=== PATIENT | female | born 1995 | race Two or more races ===

== ENCOUNTER 2016-03-01 00:12 | Observation (INO) | payer OTHER ==
[2016-03-01] VITALS (10 sets, daily range): BP systolic 90–108; BP diastolic 45–68
[~2016-03-01] VITALS: Ht 149.9 cm; Wt 49.4 kg
[2016-03-01] MEDS ORDERED: FENTANYL PF 100 MCG/2 ML VIAL. IV ONE ×2 (01:00→01:30)
[2016-03-01] MEDS ORDERED: KETOROLAC TROMETHAMINE 30 MG/ML SYRINGE. IV ONE (01:00)
[2016-03-01 01:06] LABS: BILIRUBIN,URINE NEGATIVE (NEG); GLUCOSE,URINE NEGATIVE (NEG); NITRITE,URINE NEGATIVE (NEG); PH,URINE 7.5; PROTEIN,URINE 30 mg/dL (NEG-TRACE); UROBILINOGEN,URINE 0.2 mg/dL (0.2 mg/dL)
[2016-03-01 01:11] LABS: RBC,URINE TNTC /HPF (0-2)
[2016-03-01 01:13] LABS: BACTERIA,URINE 0 /HPF (0-FEW)
[2016-03-01] MEDS ORDERED: ONDANSETRON PF 4 MG/2 ML VIAL. IV ONE (01:15)
[2016-03-01 01:31] LABS: BASO # 0.1 x10^3/uL (0.0-0.2); BASO % 1 % (0-3); EOS % 1 % (0-3); HEMATOCRIT 40.5 % (36.0-47.0); HEMOGLOBIN 13.3 g/dL (12.0-15.5); LYMPH # 3.9 x10^3/uL (1.0-4.8); LYMPH % 19 % (24-48); MEAN CORPUSCULAR HEMOGLOBIN 28 pg (25-35); MEAN CORPUSCULAR HGB CONC 33 g/dL (31-37); MEAN CORPUSCULAR VOLUME 87 fL (79-100); MONO % 7 % (0-9); NEUT % 73 % (31-73); PLATELET COUNT 344 x10^3/uL (140-400); RED BLOOD COUNT 4.66 x10^6/uL (3.50-5.40)
[2016-03-01 01:50] LABS: % EOS 2 % (0-5); PLT ESTIMATE ADEQUATE (ADEQUATE)
[2016-03-01] MEDS ORDERED: ACETAMINOPHEN 325 MG TABLET. PO PRN (03:30)
[2016-03-01] MEDS ORDERED: ONDANSETRON PF 4 MG/2 ML VIAL. IV PRN ×2 (03:30→08:15)
[2016-03-01] MEDS: FENTANYL PF 100 MCG/2 ML VIAL. IV PRN ×4 (03:48→10:46)
--- NOTE | 2016-03-01 04:07 | PHYS DOC ---
Past Medical History Past Medical History: No Pertinent History Past Surgical History: No Surgical History Alcohol Use: None Drug Use: None, Marijuana Adult General Chief Complaint Chief Complaint: VAGINAL BLEEDING HPI HPI Patient is a 21 year old female G1 approximately 8 weeks single IUP who presents with vaginal bleeding and lower abdominal pain since evaluation by her studio coordinator. She was diagnosed with an inevitable after ultrasound was obtained showing single IUP with no heart tones. She states her studio coordinator recommended a D&E, but she did not go to her OR appointment. At that time, she was having vaginal spotting. She has had gradual increase in her vaginal bleeding including passage of blood clots. She has midline lower abdominal pain that is crampy and severe. She denies fever or chills, nausea or vomiting, diarrhea, dysuria, prior vaginal discharge. Review of Systems Review of Systems Constitutional: Denies fever or chills [] Eyes: Denies change in visual acuity, redness, or eye pain [] HENT: Denies nasal congestion or sore throat [] Respiratory: Denies cough or shortness of breath [] Cardiovascular: No additional information not addressed in HPI [] GI: Denies nausea, vomiting, bloody stools or diarrhea [] : Denies dysuria or hematuria [] Musculoskeletal: Denies back pain or joint pain [] Integument: Denies rash or skin lesions [] Neurologic: Denies headache, focal weakness or sensory changes [] Endocrine: Denies polyuria or polydipsia [] Current Medications Current Medications Current Medications Medications (Trade) Dose Ordered Sig/[facility] Start Time Stop Time Status Last Admin Dose Admin Fentanyl Citrate (Fentanyl 2ml Vial) 75 mcg 1X ONCE 03/01/16 01:30 03/01/16 02:43 DC 03/01/16 01:33 75 MCG Ketorolac Tromethamine (Toradol) 10 mg 1X ONCE 03/01/16 01:00 03/01/16 02:43 DC 03/01/16 01:17 10 MG Ondansetron HCl (Zofran) 4 mg 1X ONCE 03/01/16 01:15 03/01/16 02:43 DC 03/01/16 01:12 4 MG Allergies Allergies Allergies Coded Allergies Type Severity Reaction Last Updated Verified No Known Drug Allergies 03/01/16 No Physical Exam Physical Exam Constitutional: Well developed, well nourished, no acute distress, non-toxic appearance. [] HENT: Normocephalic, atraumatic, bilateral external ears normal, oropharynx moist, nose normal. [] Eyes: PERRLA, EOMI. [] Neck: Normal range of motion, supple. [] Cardiovascular:Heart rate regular rhythm [] Lungs & Thorax: Bilateral breath sounds clear to auscultation [] Abdomen: Bowel sounds normal, soft, moderate suprapubic tenderness, no guarding or rebound. [] Genitourinary: Genitalia without lesions, No vaginitis or cervicitis, moderate blood pooling and blood clots present in vault, no active bleeding, Os at visual fingertip Skin: Warm, dry, no erythema, no rash. [] Back: No tenderness, no CVA tenderness. [] Extremities: ROM intact, no edema. [] Neurologic: Alert and oriented X 3, normal motor function, normal sensory function, no focal deficits noted. [] Psychologic: Affect normal, judgement normal, mood normal. [] Current Patient Data Vital Signs Vital Signs Date Time Temp Pulse Resp B/P Pulse Ox O2 Delivery O2 Flow Rate FiO2 03/01/16 01:33 16 98 Room Air Lab Values Laboratory Tests Test 03/01/16 00:58 03/01/16 01:09 Urine Collection Type Unknown Urine Color Red Urine Clarity Turbid Urine pH 7.5 Urine Specific [place] 1.015 Urine Protein 30mg/dL (NEG-TRACE) Urine Glucose (UA) Negativemg/dL (NEG) Urine Ketones (Stick) Tracemg/dL (NEG) Urine Blood Large (NEG) Urine Nitrite Negative (NEG) Urine Bilirubin Negative (NEG) Urine Urobilinogen Dipstick 0.2mg/dL (0.2 mg/dL) Urine Leukocyte Esterase Moderate (NEG) Urine RBC Tntc/HPF (0-2) Urine WBC 5-10/HPF (0-4) Urine Squamous Epithelial Cells None/LPF Urine Amorphous Sediment Present/HPF Urine Bacteria 0/HPF (0-FEW) White Blood Count 21.0x10^3/uL (4.0-11.0) H Red Blood Count 4.66x10^6/uL (3.50-5.40) Hemoglobin 13.3g/dL (12.0-15.5) Hematocrit 40.5% (36.0-47.0) Mean Corpuscular Volume 87fL (79-100) Mean Corpuscular Hemoglobin 28pg (25-35) Mean Corpuscular Hemoglobin Concent 33g/dL (31-37) Red Cell Distribution Width 13.0% (11.5-14.5) Platelet Count 344x10^3/uL (140-400) Neutrophils (%) (Auto) 73% (31-73) Lymphocytes (%) (Auto) 19% (24-48) L Monocytes (%) (Auto) 7% (0-9) Eosinophils (%) (Auto) 1% (0-3) Basophils (%) (Auto) 1% (0-3) Neutrophils # (Auto) 15.3x10^3uL (1.8-7.7) H Lymphocytes # (Auto) 3.9x10^3/uL (1.0-4.8) Monocytes # (Auto) 1.4x10^3/uL (0.0-1.1) H Eosinophils # (Auto) 0.2x10^3/uL (0.0-0.7) Basophils # (Auto) 0.1x10^3/uL (0.0-0.2) Segmented Neutrophils % 67% (35-66) H Band Neutrophils % 1% (0-9) Lymphocytes % 24% (24-48) Monocytes % 6% (0-10) Eosinophils % 2% (0-5) Platelet Estimate Adequate (ADEQUATE) Maternal Serum HCG Beta Subunit 3695mIU/mL (0-6) H Laboratory Tests 03/01/16 01:09 Course & Med Decision Making Course & Med Decision Making Pertinent Labs and Imaging studies reviewed. (See chart for details) I performed bedside ultrasound showing continued presence of products of conception. She has leukocytosis, but laboratory evaluation is otherwise unremarkable. Discussed with Dr. Modi, her studio coordinator, who recommends admission for D&E. Patient agrees with plan. Dragon Disclaimer Dragon Disclaimer This electronic medical record was generated, in whole or in part, using a voice recognition dictation system. Departure Departure Impression: Primary Impression: Missed Disposition: ADMITTED INPATIENT Condition: STABLE Referrals: NO PCP (PCP) Jennifer CHA MD Mar 01, 2016 04:07
[2016-03-01] MEDS ORDERED: IV RINGERS,LACTATED 1000ML 1,000 ML IV SCH (08:10)
[2016-03-01] MEDS ORDERED: PROCHLORPERAZINE 10 MG/2 ML VIAL. IV PRN (08:15)
[2016-03-01] MEDS ORDERED: MORPHINE SULFATE 2 MG/ML DISP.SYRIN. IV PRN (08:15)
[2016-03-01] MEDS ORDERED: FENTANYL PF 100 MCG/2 ML VIAL. IV PRN (08:15)
[2016-03-01] MEDS ORDERED: LIDOCAINE 1% 1 ML SYRINGE. ID PRN (08:15)
[2016-03-01] MEDS ORDERED: HYDROMORPHONE 2 MG/ML VIAL. IV PRN (08:15)
[2016-03-01] MEDS ORDERED: MIDAZOLAM HCL 2 MG/2 ML VIAL. ONE (08:16)
[2016-03-01] MEDS ORDERED: SEVOFLURANE 31 TO 60 MINUTES. IH ONE (08:16)
[2016-03-01] MEDS ORDERED: FENTANYL PF 100 MCG/2 ML VIAL. ONE (08:16)
[2016-03-01] MEDS ORDERED: KETOROLAC 30 MG/ML SYRINGE FOR OR. INJ ONE (08:17)
[2016-03-01] MEDS ORDERED: PROPOFOL 20 ML IV ONE (08:17)
[2016-03-01] MEDS ORDERED: DEXAMETHASONE SOD PHOS 20 MG/5 ML VIAL. ONE (08:17)
[2016-03-01] MEDS ORDERED: ONDANSETRON PF 4 MG/2 ML VIAL. ONE (08:17)
[2016-03-01] MEDS ORDERED: LIDOCAINE 2% 100 MG/5 ML DISP.SYRIN. ONE (08:17)
[2016-03-01] MEDS ORDERED: OXYTOCIN 10 UNIT/ML VIAL. ONE (09:19)
--- NOTE | 2016-03-01 09:23 | PDOC ---
BRIEF OPERATIVE NOTE Pre-Op Diagnosis incomplete Ab Post-Op Diagnosis Same Procedure Performed Suction D and C Surgeon Ly Cq Developer None Anesthesia Type: General Blood Loss 100cc Specimens Obtained POC Complications None RAFAELA REARDON MD Mar 01, 2016 09:23
[2016-03-01] MEDS ORDERED: NAPR500T PO (09:28)
[2016-03-01] MEDS ORDERED: METH0.2T36 PO (09:28)
[2016-03-01] MEDS ORDERED: DOXY100C14 PO (09:28)
[2016-03-01] MEDS ORDERED: HYDR-971 PO (09:28)
--- NOTE | 2016-03-01 09:51 | PDOC3 ---
OB DISCHARGE SUMMARY DATE OF ADMISSION: 03/01/16 DATE OF DISCHARGE: 03/01/16 REASON FOR ADMISSION: Other PROCEDURES: Ultrasound INTRAPARTUM PROCEDURES: Others (Suction D and C) PROCEDURES: None PROBLEM LIST AT DISCHARGE Problems Medical Problems: (1) Missed Status: Acute DISCHARGE INFORMATION: Activity, Diet HOSPITAL COURSE unremarkable CONDITION AT DISCHARGE stable RAFAELA REARDON MD Mar 01, 2016 09:51
--- NOTE | 2016-03-01 19:48 | OP ---
DATE OF SURGERY: 03/01/2016 PREOPERATIVE DIAGNOSIS: Incomplete . POSTOPERATIVE DIAGNOSIS: Incomplete . PROCEDURE: Suction D and C. SURGEON: Edilberto Modi MD. SENIOR TECH MANUFACTURING ENGINEERING: None. ANESTHESIA: General. ESTIMATED BLOOD LOSS: 100 mL. SPECIMENS: Products of conception. COMPLICATIONS: None. CONDITION: Stable. DESCRIPTION OF PROCEDURE: After risks, benefits, indications, alternatives discussed in detail with the patient, the patient brought to the OR theater, placed in the dorsolithotomy position in José stirrups. After adequate general anesthesia, the patient was prepped and draped in usual sterile manner. Exam under anesthesia was performed. Uterus was approximately 8 weeks size and retroflexed. A posterior weighted speculum was placed in the vaginal vault. Cervix was grasped with single tooth tenaculum. Cervix was dilated up to #12 Hegar dilator and #11 suction cannula was placed through the cervical os. Gentle suction and curettage was performed in all quarters. Products of conception were seen going through the clear tubing. Sharp curettage was performed and uterine cry was heard. Another set of gentle suction curretage with suction cannula was performed. No further products were seen. Procedure was terminated. The tubing was cleared with normal saline. The vaginal vault was wiped clean of any blood or debris. Single tooth tenaculum was removed. Puncture sites were hemostatic. Posterior weighted speculum was removed. Posterior vault was wiped clean with sponge stick. Procedure was terminated. Sponge, needle and instrument counts were correct x 2 per nursing staff. EDILBERTO MODI MD DR: CARLY/sagar JOB#: [id number] / [id number]
--- NOTE | 2016-03-03 13:11 | PATHOLOGY ---
PATHOLOGY REPORT * * * * * * * * FINAL DIAGNOSIS: Tissue designated "products of conception": - Segments of decidual tissue and secretory endometrium showing focal hemorrhage and acute inflammation. COMMENT: There are no chorionic villi identified. (JPM:all; d/t: 03/03/2016) REPORT ELECTRONICALLY SIGNED BY: James Kaba M.D. DATE/TIME: 03/03/2016 13:04 * * * * * * * * GROSS PATHOLOGY: Received in formalin labeled "Rafi Gaxiola, products of conception," is a 4.3 x 4.2 x 1.0 cm aggregate of abundant blood clot admixed with spongiform, pink-escudero tissue. tissue is not grossly identified. Vesicular structures are absent. [employer]ist tissue is submitted in cassette A1 through A3. (CAA; 03/02/2016) INITIAL CPT CODE(S): A; 32139 Professional services performed [place] [facility] [place] [address] Technical services performed by [facility] at [address] [place] [address], [facility] [address] [address]. SPECIMEN(S) RECEIVED: A.Products of conception CLINICAL HISTORY: Missed PATIENT: RAFI GAXIOLA /AGE: 12 1995 (Age: 21) PATIENT #: [id number] ALT CASE #: SPECIMEN COLLECTION DATE: 03/01/2016 SPECIMEN RECEIVED DATE: 03/02/2016 [facility] - [address] [place] [address] - PHONE: [phone] * * * END OF REPORT * * *
== END 2016-03-01 14:15 | disposition home or self-care (01) ==
LOC: ER 00:12 → 3 NORTH 02:40
PROVIDERS: ADMIT Specialist; ATTEND Specialist
DX: O03.4 Incomplete spontaneous abortion without complication (principal); O46.91 Antepartum hemorrhage, unspecified, first trimester; O99.321 Drug use complicating pregnancy, first trimester; F12.90 Cannabis use, unspecified, uncomplicated; Z3A.08 8 weeks gestation of pregnancy
CPT/HCPCS: 36415; 59812; 81001; 84702; 85007; 85027; 86900; 86901; 87086; 87491; 87591; 96374; 96375; 96376; 99285; C1769; G0378; J1100; J1885; J2250; J2405; J2590; J2704; J3010; 88305; G0379

== ENCOUNTER 2016-12-15 09:40 | Observation (INO) | payer OTHER ==
[2016-03-01 13:32] VITALS: BP 100/63
[~2016-12-15 09:40] MED LIST: DOXY100C14 PO; HYDR-971 PO; METH0.2T36 PO; NAPR500T PO
[2016-12-15 10:45] LABS: POS OBC AMNIO POS
[2016-12-15 10:46] LABS: NEG OBC AMNIO NEG
[2016-12-15 11:03] LABS: BILIRUBIN,URINE NEGATIVE (NEG); GLUCOSE,URINE NEGATIVE (NEG); NITRITE,URINE NEGATIVE (NEG); PH,URINE 6.5; PROTEIN,URINE NEGATIVE (NEG-TRACE); UROBILINOGEN,URINE 0.2 mg/dL (0.2 mg/dL)
[2016-12-15 11:15] LABS: SQUAMOUS EPITHELIAL CELL,UR MANY /LPF
[2016-12-15 11:16] LABS: BACTERIA,URINE MANY /HPF (0-FEW); RBC,URINE OCC /HPF (0-2)
[2016-12-15 12:30] LABS: BASO % 0 % (0-3); EOS % 1 % (0-3); HEMATOCRIT 36.4 % (36.0-47.0); HEMOGLOBIN 12.3 g/dL (12.0-15.5); LYMPH # 2.1 x10^3/uL (1.0-4.8); LYMPH % 22 % (24-48); MEAN CORPUSCULAR HEMOGLOBIN 30 pg (25-35); MEAN CORPUSCULAR HGB CONC 34 g/dL (31-37); MEAN CORPUSCULAR VOLUME 90 fL (79-100); MONO % 9 % (0-9); NEUT % 67 % (31-73); PLATELET COUNT 246 x10^3/uL (140-400); RED BLOOD COUNT 4.07 x10^6/uL (3.50-5.40); RED CELL DISTRIBUTION WIDTH 14.4 % (11.5-14.5); WHITE BLOOD COUNT 9.5 x10^3/uL (4.0-11.0)
[2016-12-15 12:50] LABS: ALBUMIN 2.5 g/dL (3.4-5.0); ALBUMIN/GLOBULIN RATIO 0.6 (1.0-1.7); CALCIUM 9.1 mg/dL (8.5-10.1); CREATININE 0.4 mg/dL (0.6-1.0); GFR 201.5; POTASSIUM 3.9 mmol/L (3.5-5.1); TOTAL BILIRUBIN 0.2 mg/dL (0.2-1.0); TOTAL PROTEIN 6.8 g/dL (6.4-8.2)
--- NOTE | 2016-12-15 13:49 | EKG ---
[facility] [address] [place] [address] Test Date: 2016-12-15 Test Time: 13:42:50 Pat Name: RAFI GAXIOLA Department: Room: 387 Gender: F Construction Millwright: ALFRED : 1995 Requested By: RAFAELA REARDON Order Number: [id number] Reading MD: Elma Gunter Measurements Intervals [place] Rate: 124 P: 51 SC: 92 QRS: 39 QRSD: 76 T: 5 QT: 324 QTc: 470 Interpretive Statements SINUS TACHYCARDIA OTHETRWISE NORMAL ECG Electronically Signed On 12-15-2016 19:14:57 CDT by Elma Gunter
[2016-12-15 13:58] LABS: BARBITURATES NEG (NEG); BENZODIAZEPINES NEG (NEG); CANNABINOIDS NEG (NEG); COCAINE NEG (NEG); METHADONE NEG (NEG); OPIATES NEG (NEG); PHENCYCLIDINE NEG (NEG)
== END 2016-12-15 14:30 | disposition home or self-care (01) ==
LOC: 3 SO LND 09:40
PROVIDERS: ADMIT Specialist; ATTEND Specialist
DX: O42.913 Preterm premature rupture of membranes, unspecified as to length of time between rupture and onset of labor, third trimester (principal); O62.9 Abnormality of forces of labor, unspecified; Z3A.36 36 weeks gestation of pregnancy
CPT/HCPCS: 36415; 80053; 80307; 81001; 84112; 84443; 85025; 87086; 93005; G0378; G0379; Q0111; G0479

== ENCOUNTER 2017-01-06 06:18 | Inpatient (IN) | payer OTHER ==
[~2017-01-06] VITALS: Ht 165.1 cm; Wt 65.8 kg
[~2017-01-06 06:18] MED LIST changes: +NAPR-683 PO; -NAPR500T PO
[2017-01-06] MEDS ORDERED: LIDOCAINE 1% PF 30 ML VIAL. INJ PRN (06:30)
[2017-01-06] MEDS ORDERED: IBUPROFEN 600 MG TABLET. PO PRN (06:30)
[2017-01-06] MEDS ORDERED: BUTORPHANOL 2 MG/ML VIAL. IV PRN (06:30)
[2017-01-06] MEDS ORDERED: TERBUTALINE 1 MG/ML VIAL. SQ PRN (06:30)
[2017-01-06] MEDS ORDERED: 0.9 % SODIUM CHLORIDE 10 ML DISP.SYRIN. IV PRN ×2 (06:30→17:30)
[2017-01-06] MEDS ORDERED: fentaNYL PF VIAL 100 MCG/2 ML VIAL IV PRN (06:30)
[2017-01-06] MEDS ORDERED: OXYTOCIN 30 UNIT/500 ML PREMIX 500 ML IV PRN ×3 (06:30→17:30)
[2017-01-06 06:53] VITALS: BP 117/75
[2017-01-06] MEDS: IV RINGERS,LACTATED 1000ML 1,000 ML IV SCH ×3 (06:57→14:36)
[2017-01-06 07:59] LABS: BACTERIA,URINE MANY /HPF (0-FEW); BILIRUBIN,URINE NEGATIVE (NEG); GLUCOSE,URINE NEGATIVE (NEG); NITRITE,URINE NEGATIVE (NEG); PROTEIN,URINE NEGATIVE (NEG-TRACE); RBC,URINE 0 /HPF (0-2); SQUAMOUS EPITHELIAL CELL,UR MOD /LPF; UROBILINOGEN,URINE 0.2 mg/dL (0.2 mg/dL)
[2017-01-06 11:31] LABS: HEMATOCRIT 37.5 % (36.0-47.0); HEMOGLOBIN 12.5 g/dL (12.0-15.5); RED BLOOD COUNT 4.21 x10^6/uL (3.50-5.40); RED CELL DISTRIBUTION WIDTH 14.6 % (11.5-14.5)
[2017-01-06] MEDS ORDERED: L&D EPIDURAL CASSETTE 100 ML EP ONE (12:24)
[2017-01-06] MEDS ORDERED: ROPIVacaine 0.2% IN 0.9%NACL PF 40 MG/20 ML DISP.SYRIN. ONE ×2 (12:24→12:30)
[2017-01-06] MEDS ORDERED: fentaNYL PF VIAL 100 MCG/2 ML VIAL EPI ONE (12:45)
[2017-01-06] MEDS ORDERED: ePHEDrine PF IN SALINE 50 MG/5 ML DISP.SYRIN IV PRN (12:45)
[2017-01-06] MEDS ORDERED: ROPIVacaine 0.2% PF 10 ML VIAL. EPI ONE (12:45)
[2017-01-06] MEDS ORDERED: ONDANSETRON PF 4 MG/2 ML VIAL. IV PRN (12:45)
[2017-01-06] MEDS ORDERED: NALOXONE 0.4 MG/ML VIAL. IV PRN (12:45)
[2017-01-06] MEDS: L&D EPIDURAL CASSETTE 100 ML EP PRN ×2 (12:49→17:16)
[2017-01-06] MEDS ORDERED: PHENYLEPH/MINERAL OIL/PETROLAT RECTAL OINTMENT 28GM TUBE. RC PRN (17:30)
[2017-01-06] MEDS ORDERED: diphenhydrAMINE HCL 25 MG CAPSULE PO PRN (17:30)
[2017-01-06] MEDS ORDERED: ACETAMINOPHEN 325 MG TABLET. PO PRN (17:30)
[2017-01-06] MEDS ORDERED: HYDROCORTISONE 1% TOPICAL OINTMENT 30GM TUBE. TP PRN (17:30)
[2017-01-06] MEDS ORDERED: MAGNESIUM HYDROXIDE 2,400 MG/30 ML ORAL.SUSP. PO PRN (17:30)
[2017-01-06] MEDS ORDERED: BENZOCAINE 20% TOPICAL AEROSOL SPRAY 57GM CAN. TP PRN (17:30)
[2017-01-06] MEDS ORDERED: SIMETHICONE 80 MG TAB.CHEW PO PRN (17:30)
[2017-01-06] MEDS ORDERED: MAG HYDROX/ALUMINUM HYD/SIMETH 30 ML ORAL.SUSP PO PRN (17:30)
[2017-01-06] MEDS ORDERED: ZOLPIDEM 5 MG TABLET. PO PRN (17:30)
[2017-01-06 20:30] VITALS: BP 104/63
[2017-01-06 21:30] VITALS: BP 111/67
[2017-01-07 02:44] VITALS: BP 90/48
[2017-01-07] MEDS: IBUPROFEN 800 MG TABLET. PO SCH ×3 (02:46→17:56)
[2017-01-07 06:07] VITALS: BP 87/51
[2017-01-07] MEDS ORDERED: FERROUS SULFATE 325 MG TABLET. PO SCH (08:00)
[2017-01-07] MEDS ORDERED: DIPHTH,PERTUSS(ACELL),TET TOX 0.5 ML DISP.SYRIN. VAX IM ONE (09:00)
[2017-01-07 11:00] VITALS: BP 93/56
--- NOTE | 2017-01-07 11:45 | PDOC ---
OB Progress Note Date of Service 01/07/17 Time of Evaluation 1144 Notes Pt. feeling well. No complaints. Lab Laboratory Tests Test 01/06/17 06:40 01/06/17 08:00 01/07/17 06:13 Urine Collection Type Unknown Urine Color Yellow Urine Clarity Cloudy Urine pH 7.0 Urine Specific [place] 1.010 Urine Protein Negative mg/dL (NEG-TRACE) Urine Glucose (UA) Negative mg/dL (NEG) Urine Ketones (Stick) Negative mg/dL (NEG) Urine Blood Negative (NEG) Urine Nitrite Negative (NEG) Urine Bilirubin Negative (NEG) Urine Urobilinogen Dipstick 0.2 mg/dL (0.2 mg/dL) Urine Leukocyte Esterase Large (NEG) Urine RBC 0 /HPF (0-2) Urine WBC 11-20 /HPF (0-4) Urine Squamous Epithelial Cells Mod /LPF Urine Bacteria Many /HPF (0-FEW) White Blood Count 9.0 x10^3/uL (4.0-11.0) Red Blood Count 4.21 x10^6/uL (3.50-5.40) Hemoglobin 12.5 g/dL (12.0-15.5) Hematocrit 37.5 % (36.0-47.0) 32.4 % (36.0-47.0) Mean Corpuscular Volume 89 fL (79-100) Mean Corpuscular Hemoglobin 30 pg (25-35) Mean Corpuscular Hemoglobin Concent 33 g/dL (31-37) Red Cell Distribution Width 14.6 % (11.5-14.5) Platelet Count 261 x10^3/uL (140-400) RPR Titer Additional Testing Negative (Non Reactive) Laboratory Tests Test 01/07/17 06:13 Hematocrit 32.4 % (36.0-47.0) Medications Current Medications Sodium Chloride (Normal Saline Flush) 3 ml QSHIFT PRN IV AFTER MEDS AND BLOOD DRAWS; Start 01/06/17 at 06:30 Ringer's Solution 1,000 ml @ 125 mls/hr Q8H IV Last administered on t 14:36; Start 01/06/17 at 06:19 Butorphanol Tartrate (Stadol) 2 mg PRN Q1HR PRN IV Severe labor pain; Start at 06:30 Fentanyl Citrate (Fentanyl 2ml Vial) 100 mcg PRN Q30MIN PRN IV Severe pain Last administered on 01/06/17 11:19; Start 01/06/17 at 06:30 Terbutaline Sulfate (Brethine) 0.25 mg 1X PRN PRN SQ SEE COMMENTS; Start 01/06 at 06:30; Stop 01/07/17 at 06:29; Status DC Lidocaine HCl 30 ml 1X PRN PRN INJ SEE COMMENTS; Start 01/06/17 at 06:30; Stop 01/08/17 at 06:29 Oxytocin/Sodium Chloride 500 ml @ 0 mls/hr CONT PRN IV SEE I/O RECORD Last administered on 01/06/17 07:39; Start 01/06/17 at 06:30 Oxytocin/Sodium Chloride 500 ml @ 0 mls/hr CONT PRN PRN IV Post delivery bleeding; Start 01/06/17 at 06:30 Ibuprofen (Motrin) 600 mg PRN Q6HRS PRN PO MODERATE PAIN Last administered on 01/06/17 20:09; Start 01/06/17 at 06:30 Ropivacaine/ Fentanyl/NS 100 ml @ As Directed STK-MED ONCE EP ; Start at 12:24; Stop 01/06/17 at 12:25; Status DC Ropivacaine/ Sodium Chloride 40 mg STK-MED ONCE .ROUTE ; Start 01/06/17 at 12: 24; Stop 01/06/17 at 12:25; Status DC Ephedrine Sulfate 10 mg PRN Q2MIN PRN IV IF SBP<90; Start 01/06/17 at 12:45 Naloxone HCl (Narcan) 0.04 mg PRN Q1MIN PRN IV SEE COMMENTS; Start 01/06/17 at 12:45 Fentanyl Citrate (Fentanyl 2ml Vial) 100 mcg 1X ONCE EPI ; Start 01/06/17 at 12:45; Stop 01/06/17 at 12:50; Status DC Ropivacaine/ Fentanyl/NS 100 ml @ 14 mls/hr CONT PRN EP PAIN Last administered on 01/06/17 17:16; Start 01/06/17 at 12:45 Ondansetron HCl (Zofran) 4 mg PRN Q6HRS PRN IV NAUSEA/VOMITING; Start at 12:45 Ropivacaine (Naropin 0.2%) 20 ml 1X ONCE EPI ; Start 01/06/17 at 12:45; Stop 01/06/17 at 12:50; Status DC Sodium Chloride (Normal Saline Flush) 10 ml QSHIFT PRN IV AFTER MEDS AND BLOOD DRAWS; Start 01/06/17 at 17:30 Oxytocin/Sodium Chloride 500 ml @ 62.5 mls/hr CONT PRN IV SEE I/O RECORD; Start 01/06/17 at 17:30; Stop 01/07/17 at 01:29; Status DC Acetaminophen (Tylenol) 650 mg PRN Q6HRS PRN PO MILD PAIN / TEMP; Start at 17:30 Ibuprofen (Motrin) 800 mg Q8HRS PO Last administered on 01/07/17t 11:33; Start 01/06/17 at 22:00 Magnesium Hydroxide (Milk Of Magnesia) 2,400 mg PRN DAILY PRN PO CONSTIPATION; Start 01/06/17 at 17:30 Al Hydroxide/Mg Hydroxide (Mylanta Plus Xs) 30 ml PRN Q4HRS PRN PO HEARTBURN / GAS; Start 01/06/17 at 17:30 Simethicone (Gas-X) 80 mg PRN AFTMEALHC PRN PO GAS / BLOATING; Start 01/06/17 at 17:30 Diphenhydramine HCl (Benadryl) 25 mg PRN Q6HRS PRN PO ITCHING; Start 01/06/17 at 17:30 Benzocaine (Americaine) 1 spray PRN QID PRN TP TOPICAL PAIN Last administered on 01/06/17t 20:09; Start 01/06/17 at 17:30 Phenyleph/Shark Oil/Min Oil/Petrol (Preparation H) 1 supriya PRN QID PRN RC RECTAL PAIN; Start 01/06/17 at 17:30 Hydrocortisone (Cortaid) 1 supriya PRN QID PRN TP RECTAL PAIN; Start 01/06/17 at 17:30 Ferrous Sulfate (Feosol) 325 mg BIDWMEALS PO ; Start 01/07/17 at 08:00 Zolpidem Tartrate (Ambien) 5 mg PRN QHS PRN PO INSOMNIA, MAY REPEAT X1; Start 01/06/17 at 17:30 Info (Do NOT chart on this placeholder) 1 ea 1X PRN PRN MC SEE COMMENTS; Start 01/06/17 at 17:30; Status Cancel Diphtheria/ Tetanus/Acell Pertussis (Boostrix) 0.5 ml ONCE ONCE VAX IM Last administered on 01/07/17t 08:52; Start 01/07/17 at 09:00; Stop 01/07/17 at 09 :01; Status DC Active Scripts Active Methergine (Methylergonovine Maleate) 0.2 Mg Tablet 0.2 Mg PO TID Doxycycline Monohydrate 100 Mg Capsule 1 Cap PO BID Naprosyn (Naproxen) 500 Mg Tablet 1 Tab PO BID [place] 5-325 Tablet (Acetaminophen/Hydrocodone Bitart) 1 Each Tablet 1 Tab PO PRN Q6HRS PRN Exam Abd: soft, non tender, fundus firm Assessment PPD#2 s/p Plan of Care: See new orders (D/c home) IVETT PIERCE Jr, MD Jan 07, 2017 11:45
[2017-01-07 15:47] VITALS: BP 110/64
[2017-01-07 19:24] VITALS: BP 98/63
[2017-01-07 23:01] VITALS: BP 108/64
[2017-01-08] MEDS: IBUPROFEN 800 MG TABLET. PO SCH ×2 (01:48→09:30)
[2017-01-08 05:56] VITALS: BP 90/50
--- NOTE | 2017-01-08 09:00 | PDOC1 ---
OB - History Hx of Present Care: Good Care Obstetrical Complications: None Medical Complications: None Past Family/Social History * Past Medical, Surgical, Family and Obstetric Histories reviewed from chart. Rubella: Immune RPR/VDRL: Negative GBS Status: Negative HBsAG: Negative OB - Chief Complaint & HPI Date of Admission: Date of Admission: Jan 06, 2017 at 06:18 Chief Complaint/History : 2 EDC: Jan 13, 2017 Reason for admission: induction of labor Indication for induction: other Admission Nurse Assessment Rev: Yes Problems: OB - Admission Exam Physical Exam Vitals: VS - Last 72 Hours, by Label Date Time Temp Pulse Resp B/P (MAP) Pulse Ox O2 Delivery O2 Flow Rate FiO2 01/08/17 05:56 97.6 69 16 90/50 (63) 98 Room Air 97.6 01/07/17 23:01 98.0 84 14 108/64 (79) 98 Room Air 98.0 01/07/17 19:24 98.1 89 14 98/63 (75) 99 Room Air 98.1 01/07/17 15:47 98.4 72 16 110/64 (79) Room Air 98.4 01/07/17 11:00 97.6 74 93/56 (68) 98 97.6 01/07/17 06:07 97.6 74 20 87/51 (63) 98 Room Air 97.6 01/07/17 02:44 91 90/48 (62) Room Air 01/07/17 01:45 97.7 97.7 01/06/17 21:30 97.9 96 18 111/67 (82) 97 Room Air 97.9 01/06/17 20:30 98.3 121 20 104/63 (77) 98 Room Air 98.3 01/06/17 17:16 20 01/06/17 12:49 20 01/06/17 11:19 22 01/06/17 06:53 98.3 101 18 117/75 (89) Room Air 98.3 HEENT: Normal, Nasal Mucosa Normal, Oropharynx Normal, Moist Membranes, Fontanelles Normal Heart: Regular Rate Lungs: Clear, Equal Abdomen: Gravid Extremities: Normal Pulses, No tenderness or swelling Reflexes: Normal Cervical Dilatation: 2cm Effacement: 50% Membranes: Intact Amniotic Fluid: Clear Heart Rate: Normal Decelerations: No decelerations Contractions on Admission: >10 Minutes Apart Intensity: Moderate Assessment/Plan Assessment/Plan TIUP Induction ACSVD Problems: RAFAELA REARDON MD Jan 08, 2017 09:00
--- NOTE | 2017-01-08 09:04 | PDOC ---
VAGINAL DELIVERY DATE DATE: 01/08/17 TIME: 09:00 : 2 EDC: Jan 13, 2017 VAGINAL DELIVERY: VTX VACCUM ASSISTED: No PLACENTA: Spontaneous SEX: Female WEIGHT 3195gm Nuchal Cord: No Amniotic Fluid: Clear PAIN: Epidural EPISIOTOMY: No EXTENSION: Yes EBL 300cc COMPLICATIONS None CONDITION Stable Signs of Intrauterine Infectio: None Shoulder Dystocia: No DIAGNOSIS TIUP Del Problems: RAFAELA REARDON MD Jan 08, 2017 09:04
--- NOTE | 2017-01-08 09:05 | PDOC3 ---
OB DISCHARGE SUMMARY DATE OF ADMISSION: 01/06/17 DATE OF DISCHARGE: 01/08/17 REASON FOR ADMISSION: Induction of labor PROCEDURES: Ultrasound INTRAPARTUM PROCEDURES: Spontanous Vag Deliv PROCEDURES: None OPERATIONS: None DISCHARGE DIAGNOSIS: Term Delivered DISCHARGE INFORMATION: Activity, Diet HOSPITAL COURSE Unremarkable CONDITION AT DISCHARGE Stable RAFAELA REARDON MD Jan 08, 2017 09:05
[2017-01-08] MEDS ORDERED: NAPR500T4 PO (09:06)
[2017-01-08] MEDS ORDERED: HYDR-971 PO (09:06)
[2017-01-08 09:40] VITALS: BP 110/73
== END 2017-01-08 10:30 | disposition home or self-care (01) | DRG 775 ==
LOC: 3 SO LND 06:18 → 3 NORTH 20:30
PROVIDERS: ADMIT Specialist; ATTEND Specialist
PROC: 3E0R3BZ Introduction of Anesthetic Agent into Spinal Canal, Percutaneous Approach (ICD-10-PCS; principal; 2017-01-06)
PROC: 10E0XZZ Delivery of Products of Conception, External Approach (ICD-10-PCS; 2017-01-06)
PROC: 00HU33Z Insertion of Infusion Device into Spinal Canal, Percutaneous Approach (ICD-10-PCS; 2017-01-06)
PROC: 10907ZC Drainage of Amniotic Fluid, Therapeutic from Products of Conception, Via Natural or Artificial Opening (ICD-10-PCS; 2017-01-06)
PROC: 3E0P3VZ Introduction of Hormone into Female Reproductive, Percutaneous Approach (ICD-10-PCS; 2017-01-06)
PROC: 0HQ9XZZ Repair Perineum Skin, External Approach (ICD-10-PCS; 2017-01-06)
DX: O70.0 First degree perineal laceration during delivery (principal); Z37.0 Single live birth; Z3A.39 39 weeks gestation of pregnancy
CPT/HCPCS: 36415; 81001; 85014; 85027; 86593; 86850; 86900; 86901; 87086; 90715; J2590; J2795; J3010; J7120